=== PATIENT | female | born 1975 | race Caucasian/White ===

== ENCOUNTER 2017-09-07 15:45 | Emergency (ER) | payer BC, OTHER ==
[~2017-09-07] VITALS: Ht 170.2 cm; Wt 84.4 kg
--- NOTE | ~2017-09-07 | EKG ---
[place] [address] [facility] [place] [address] ELECTROCARDIOGRAM REPORT Name: JANELLE LUA Room #: [facility]ENTERKwadwo#: [id number] Admission: 09/07/17 Attend Phys: Discharge: Date of : 79 Report #: [id number] THIS REPORT FOR: //name// [facility] ED Test Date: 2017-09-07 Test Time: 16:04:13 Pat Name: JANELLE LUA Department: Room: Gender: F [employer] Grade Teacher: ha : 1975 Requested By: Mike Jung Order Number: [id number] MD: Elieser Breaux Measurements Intervals [place] Rate: 66 P: 14 NV: 160 QRS: -24 QRSD: 102 T: 4 QT: 422 QTc: 443 Interpretive Statements Sinus rhythm Left ventricular hypertrophy Borderline T abnormalities, anterior leads No previous ECG available for comparison Electronically Signed On 09-07-2017 20:06:46 CDT by Elieser Breaux [email or web address] <ELECTRONICALLY SIGNED> By: Elieser Breaux MD 09/07/172005 1604 1604 Elieser Breaux MD /[email or web address]
[2017-09-07 17:33] LABS: ABSOLUTE NEUTROPHILS 7.2 thou/uL (1.4-8.2); BASOPHILS 1.1 % (0.0-2.0); EOSINOPHILS 2.3 % (0.0-3.0); HEMATOCRIT 41.9 % (37.0-47.0); HEMOGLOBIN 14.4 gm/dL (12.0-15.0); LYMPHOCYTES 25.6 % (24.0-44.0); MCH 29.7 pg (26.0-34.0); MCHC 34.4 g/dL (28.0-37.0); MCV 86.1 fL (80.0-100.0); MONOCYTES 4.8 % (1.0-8.0); PLATELET COUNT 216 thou/uL (150-400); POLYS 66.2 % (36.0-66.0); RBC 4.87 mil/uL (4.20-5.00); RDW 14.2 % (10.5-14.5); WBC 10.8 thou/uL (4.0-11.0)
[2017-09-07 17:43] LABS: ANION GAP 6 mmol/L (7-16); BUN 15 mg/dL (7-18); CALCIUM 9.1 mg/dL (8.5-10.1); CHLORIDE 106 mmol/L (98-107); CO2 26 mmol/L (21-32); CREATININE 0.7 mg/dL (0.6-1.0); GLUCOSE 93 mg/dL (74-106); POTASSIUM 3.6 mmol/L (3.5-5.1); SODIUM 138 mmol/L (136-145)
[2017-09-07 17:46] LABS: ALBUMIN 3.9 g/dL (3.4-5.0); DIRECT BILIRUBIN < 0.1 mg/dL (<0.1-0.3); SGOT 21 U/L (15-37); SGPT 45 U/L (30-65); TOTAL BILIRUBIN 0.4 mg/dL (<0.1-1.0); TOTAL PROTEIN 7.6 g/dL (6.4-8.2)
[2017-09-07 17:51] LABS: TROPONIN-I < 0.04 ng/mL (<0.06)
[2017-09-07] MEDS ORDERED: IBUPROFEN 600600 M1 PO (18:06)
[2017-09-07 18:43] VITALS: BP 150/87
== END 2017-09-07 18:40 | disposition home or self-care (01) ==
LOC: ER 15:45
PROVIDERS: Nurse Practitioner
DX: R07.89 Other chest pain (principal)